=== PATIENT | female | born 1975 | race Caucasian/White ===

== ENCOUNTER 2023-11-06 06:12 | Emergency (ER) | payer BC ==
[~2023-11-06] VITALS: Ht 165.1 cm; Wt 104.3 kg
[2023-11-06 06:15] VITALS: O2SAT 98
[2023-11-06] MEDS ORDERED: ONDANSETRON HCL INJ 2MG/ML 2ML 2 MG/ML VIAL ONE (06:51)
[2023-11-06] MEDS ORDERED: DICYCLOMINE HCL 20 MG/2 ML VIAL IM ONE (06:51)
[2023-11-06] MEDS ORDERED: KETOROLAC TROMETHAMINE 30 MG/ML VIAL ONE (06:51)
[2023-11-06] MEDS ORDERED: SODIUM CHLORIDE 0.9% 1000ML 1,000 ML ONE (06:51)
[2023-11-06] MEDS: DICYCLOMINE HCL 20 MG/2 ML VIAL IM ONE (06:56)
[2023-11-06] MEDS: SODIUM CHLORIDE FLUSH 10 ML SYR IV PRN (06:56)
[2023-11-06] MEDS: SODIUM CHLORIDE 0.9% 1000ML 1,000 ML IV STA (06:56)
[2023-11-06] MEDS: ONDANSETRON HCL INJ 2MG/ML 2ML 2 MG/ML VIAL IV STA (06:56)
[2023-11-06] MEDS: KETOROLAC TROMETHAMINE 30 MG/ML VIAL IV STA (06:57)
[2023-11-06 07:00] LABS: BASOPHILS % 0.2 % (0.0-1.0); EOSINOPHILS # (AUTO) 0.4 (0.0-0.4); EOSINOPHILS % 2.5 % (0.0-6.0); HEMATOCRIT 38.8 % (34.2-44.1); HEMOGLOBIN 12.9 g/dL (12.0-16.0); LYMPHOCYTES # (AUTO) 1.8 (1.0-3.2); LYMPHOCYTES % 13.1 % (18.0-39.1); MEAN CORPUSCULAR HEMOGLOBIN 29.7 pg (28-32); MEAN CORPUSCULAR HGB CONC 33.2 g/dL (31-35); MEAN CORPUSCULAR VOLUME 89.2 fL (81-99); MONOCYTES # (AUTO) 0.9 (0.2-0.8); MONOCYTES % 6.2 % (4.4-11.3); NEUTROPHILS # (AUTO) 10.9 (2.1-6.9); NEUTROPHILS % 77.5 % (38.7-80.0); PLATELET COUNT 342 x10e3/uL (140-360); RED BLOOD COUNT 4.35 x10e6/uL (3.6-5.1); RED CELL DISTRIBUTION WIDTH 14.1 % (11.7-14.4); WHITE BLOOD COUNT 14.03 x10e3/uL (4.8-10.8)
[2023-11-06 07:19] LABS: BILIRUBIN,URINE NEGATIVE (NEGATIVE); CLARITY,URINE SL CLOUDY (CLEAR); COLOR,URINE YELLOW (YELLOW); GLUCOSE, URINE NEGATIVE (NEGATIVE); KETONES,URINE NEGATIVE (NEGATIVE); LEUKOCYTE ESTERASE ,URINE NEGATIVE (NEGATIVE); NITRITE,URINE NEGATIVE (NEGATIVE); PH,URINE 6 (5 - 7); PROTEIN,URINE DIPSTICK NEGATIVE (NEGATIVE); URINE UROBILINOGEN 0.2 mg/dL (0.2 - 1)
[2023-11-06] MEDS ORDERED: DIATRIZOATE MEGL/DIATRIZOA SOD 30 ML BTL PO ONE (07:23)
[2023-11-06 07:33] LABS: ALBUMIN 3.6 g/dL (3.5-5.0); ANION GAP 12.8 mmol/L (8-16); BILIRUBIN,TOTAL 0.6 mg/dL (0.2-1.2); CALCIUM 9.6 mg/dL (8.4-10.2); CREATININE, SERUM 0.86 mg/dL (0.57-1.11); POTASSIUM 3.8 mmol/L (3.5-5.1); TOTAL PROTEIN 7.1 g/dL (6.5-8.1)
[2023-11-06 07:48] LABS: BACTERIA,URINE FEW /HPF; EPITHELIAL CELLS,URINE MODERATE /LPF; MUCUS,URINE RARE (RARE); RBC,URINE 0-5 /HPF (0-5)
[2023-11-06] MEDS ORDERED: IOPAMIDOL 370 MG/ML 100 ML INFUS..BTL INJ ONE (08:24)
[2023-11-06] MEDS ORDERED: ONDANSETRON ODT4 MG PO (09:07)
[2023-11-06] MEDS ORDERED: DICYCLOMINE HCL20 MG PO (09:07)
[2023-11-06] MEDS ORDERED: AMOX TR-K CLV1 EAC2 PO (09:07)
== END 2023-11-06 09:22 | disposition home or self-care (01) ==
LOC: ER 06:23
DX: R10.30 Lower abdominal pain, unspecified (principal); K57.32 Diverticulitis of large intestine without perforation or abscess without bleeding; R11.0 Nausea; F17.210 Nicotine dependence, cigarettes, uncomplicated
CPT/HCPCS: 36415; 74177; 80053; 81001; 84702; 85025; 93005; 99284; J0500; J1885; J2405; J7030; Q9963; Q9967

== ENCOUNTER 2024-07-15 19:07 | Emergency (ER) | payer BC ==
[~2024-07-15] VITALS: Ht 165.1 cm; Wt 104.3 kg
[~2024-07-15 19:07] MED LIST: AMOX TR-K CLV1 EAC2 PO; DICYCLOMINE HCL20 MG PO; ONDANSETRON ODT4 MG PO
[2024-07-15 20:35] VITALS: TEMP 98.1
[2024-07-15 21:08] VITALS: PULSE 65; RESP 19; O2SAT 99
[2024-07-15] MEDS ORDERED: ACETAMINOPHEN-1 EAC4 PO (21:09)
[2024-07-15] MEDS ORDERED: ONDANSETRON ODT4 MG PO (21:10)
[2024-07-15] MEDS: TRAMADOL HCL 50 MG TAB PO STA (22:08)
== END 2024-07-15 21:45 | disposition home or self-care (01) ==
LOC: ER 19:41
DX: S82.61XA Displaced fracture of lateral malleolus of right fibula, initial encounter for closed fracture (principal); W22.8XXA Striking against or struck by other objects, initial encounter; Y92.89 Other specified places as the place of occurrence of the external cause; K21.9 Gastro-esophageal reflux disease without esophagitis; F41.9 Anxiety disorder, unspecified
CPT/HCPCS: 99284

== ENCOUNTER 2024-12-13 18:49 | Emergency (ER) | payer BC, OTHER ==
[~2024-12-13] VITALS: Ht 165.1 cm; Wt 104.3 kg
[~2024-12-13 18:49] MED LIST changes: +ACETAMINOPHEN-1 EAC4 PO
[2024-12-13 19:26] LABS: BASOPHILS % 0.3 % (0.0-1.0); EOSINOPHILS # (AUTO) 0.2 (0.0-0.4); EOSINOPHILS % 1.6 % (0.0-6.0); HEMATOCRIT 36.7 % (34.2-44.1); HEMOGLOBIN 11.5 g/dL (12.0-16.0); LYMPHOCYTES # (AUTO) 1.8 (1.0-3.2); MEAN CORPUSCULAR HEMOGLOBIN 25.8 pg (28-32); MEAN CORPUSCULAR HGB CONC 31.3 g/dL (31-35); MEAN CORPUSCULAR VOLUME 82.3 fL (81-99); MONOCYTES # (AUTO) 0.6 (0.2-0.8); MONOCYTES % 5.2 % (4.4-11.3); NEUTROPHILS # (AUTO) 8.7 (2.1-6.9); NEUTROPHILS % 76.5 % (38.7-80.0); PLATELET COUNT 355 x10e3/uL (140-360); RED BLOOD COUNT 4.46 x10e6/uL (3.6-5.1); RED CELL DISTRIBUTION WIDTH 17.7 % (11.7-14.4); WHITE BLOOD COUNT 11.39 x10e3/uL (4.8-10.8)
[2024-12-13 19:29] LABS: BILIRUBIN,URINE NEGATIVE (NEGATIVE); CLARITY,URINE CLEAR (CLEAR); COLOR,URINE YELLOW (YELLOW); GLUCOSE, URINE NEGATIVE (NEGATIVE); KETONES,URINE NEGATIVE (NEGATIVE); LEUKOCYTE ESTERASE ,URINE NEGATIVE (NEGATIVE); NITRITE,URINE NEGATIVE (NEGATIVE); PH,URINE 6 (5 - 7); PROTEIN,URINE DIPSTICK NEGATIVE (NEGATIVE); RBC,URINE 0-5 /HPF (0-5); URINE UROBILINOGEN 0.2 mg/dL (0.2 - 1); WBC,URINE (MAN) 0-5 /HPF (0-5)
[2024-12-13 19:38] LABS: BACTERIA,URINE MODERATE /HPF; EPITHELIAL CELLS,URINE MANY /LPF; MUCUS,URINE MANY
[2024-12-13 19:50] LABS: ALBUMIN 3.9 g/dL (3.5-5.0); ALBUMIN/GLOBULIN RATIO 1.1 (0.8-2.0); ANION GAP 15.1 mmol/L (8-16); BILIRUBIN,TOTAL 0.3 mg/dL (0.2-1.2); CALCIUM 9.3 mg/dL (8.4-10.2); CREATININE, SERUM 1.03 mg/dL (0.57-1.11); POTASSIUM 4.1 mmol/L (3.5-5.1); TOTAL PROTEIN 7.3 g/dL (6.5-8.1)
[2024-12-13] MEDS: Morphine 4mg INJECTION 4 MG/ML INJ IV STA (19:54)
[2024-12-13] MEDS: ONDANSETRON HCL INJ 2MG/ML 2ML 2 MG/ML VIAL IV STA (19:55)
[2024-12-13] MEDS: SODIUM CHLORIDE 0.9% 1000ML 1,000 ML IV STA (19:55)
[2024-12-13] MEDS ORDERED: IOPAMIDOL 370 MG/ML 100 ML INFUS..BTL INJ ONE (20:07)
[2024-12-13 20:26] LABS: PREGNANCY TEST, URINE NEGATIVE (NEGATIVE)
[2024-12-13] MEDS: BELLADONNA ALK/PHENOBARBITAL 5 ML UDC PO ONE (21:24)
[2024-12-13] MEDS: MAGNESIUM/ALUMINUM/SIMETHICONE 30 ML UDC PO STA (21:24)
[2024-12-13] MEDS: LIDOCAINE VISC 2% SOLN 15 ML UDC PO STA (21:24)
[2024-12-13] MEDS ORDERED: AMOX TR-K CLV1 EAC2 PO (22:08)
[2024-12-13] MEDS ORDERED: KETOROLAC TROME10 MG PO (22:08)
[2024-12-13 22:30] VITALS: PULSE 78; RESP 16; TEMP 98.2; O2SAT 97
== END 2024-12-13 22:33 | disposition home or self-care (01) ==
LOC: ER 19:03
DX: R10.32 Left lower quadrant pain (principal); K57.32 Diverticulitis of large intestine without perforation or abscess without bleeding; R11.2 Nausea with vomiting, unspecified; K76.0 Fatty (change of) liver, not elsewhere classified; R16.0 Hepatomegaly, not elsewhere classified; K21.9 Gastro-esophageal reflux disease without esophagitis; F41.9 Anxiety disorder, unspecified; F32.A Depression, unspecified
CPT/HCPCS: 36415; 74177; 80053; 81001; 81025; 83690; 85025; 99284; J2270; J2405; J7030; Q9967

== ENCOUNTER 2024-12-20 14:45 | Inpatient (IN) | payer OTHER ==
[~2024-12-20] VITALS: Ht 165.1 cm; Wt 99.8 kg
[~2024-12-20 14:45] MED LIST changes: +KETOROLAC TROME10 MG PO
[2024-12-20] MEDS ORDERED: KETOROLAC TROMETHAMINE 30 MG/ML VIAL IV STA (14:58)
[2024-12-20 15:09] VITALS: RESP 18; TEMP 98
[2024-12-20 15:36] LABS: BASOPHILS % 0.3 % (0.0-1.0); EOSINOPHILS # (AUTO) 0.2 (0.0-0.4); EOSINOPHILS % 1.9 % (0.0-6.0); HEMATOCRIT 37.8 % (34.2-44.1); LYMPHOCYTES # (AUTO) 1.5 (1.0-3.2); LYMPHOCYTES % 15.5 % (18.0-39.1); MEAN CORPUSCULAR HEMOGLOBIN 25.9 pg (28-32); MEAN CORPUSCULAR HGB CONC 31.7 g/dL (31-35); MEAN CORPUSCULAR VOLUME 81.6 fL (81-99); MONOCYTES # (AUTO) 0.5 (0.2-0.8); MONOCYTES % 5.2 % (4.4-11.3); NEUTROPHILS # (AUTO) 7.4 (2.1-6.9); NEUTROPHILS % 76.9 % (38.7-80.0); PLATELET COUNT 349 x10e3/uL (140-360); RED BLOOD COUNT 4.63 x10e6/uL (3.6-5.1); RED CELL DISTRIBUTION WIDTH 17.2 % (11.7-14.4); WHITE BLOOD COUNT 9.56 x10e3/uL (4.8-10.8)
[2024-12-20] MEDS: ONDANSETRON HCL INJ 2MG/ML 2ML 2 MG/ML VIAL IV STA (15:39)
[2024-12-20] MEDS: SODIUM CHLORIDE 0.9% 1000ML 1,000 ML IV ONE (15:39)
[2024-12-20] MEDS: FENTANYL CITRATE/PF 100MCG/2 ML INJ IV ONE (15:41)
[2024-12-20 15:45] LABS: BILIRUBIN,URINE NEGATIVE (NEGATIVE); COLOR,URINE YELLOW (YELLOW); GLUCOSE, URINE NEGATIVE (NEGATIVE); KETONES,URINE NEGATIVE (NEGATIVE); LEUKOCYTE ESTERASE ,URINE TRACE (NEGATIVE); NITRITE,URINE NEGATIVE (NEGATIVE); PH,URINE 6.5 (5 - 7); PROTEIN,URINE DIPSTICK NEGATIVE (NEGATIVE); URINE UROBILINOGEN 0.2 mg/dL (0.2 - 1)
[2024-12-20 15:46] LABS: CLARITY,URINE SL CLOUDY (CLEAR)
[2024-12-20 15:53] LABS: ALBUMIN 3.9 g/dL (3.5-5.0); ALBUMIN/GLOBULIN RATIO 1.1 (0.8-2.0); ANION GAP 17.2 mmol/L (8-16); BILIRUBIN,TOTAL 0.2 mg/dL (0.2-1.2); CALCIUM 9.2 mg/dL (8.4-10.2); CREATININE, SERUM 1.02 mg/dL (0.57-1.11); POTASSIUM 4.2 mmol/L (3.5-5.1); TOTAL PROTEIN 7.5 g/dL (6.5-8.1)
[2024-12-20] MEDS ORDERED: IOPAMIDOL 370 MG/ML 100 ML INFUS..BTL INJ ONE (16:03)
[2024-12-20 16:05] LABS: MUCUS,URINE MODERATE; RBC,URINE 0-5 /HPF (0-5); TRANSITIONAL EPI CELLS,URINE FEW; YEAST,URINE FEW
[2024-12-20 16:06] LABS: BACTERIA,URINE MODERATE /HPF; EPITHELIAL CELLS,URINE MANY /LPF
[2024-12-20 16:30] VITALS: PULSE 70
[2024-12-20] MEDS: SODIUM CHLORIDE 0.9% 1000ML 1,000 ML IV SCH (17:42)
[2024-12-20 20:00] VITALS: BP 117/72; PULSE 71; RESP 18; TEMP 98.1; O2SAT 100
[2024-12-20] MEDS: FENTANYL CITRATE/PF 100MCG/2 ML INJ IV PRN (21:54)
[2024-12-20 21:56] VITALS: BP 117/72; PULSE 71; TEMP 98; O2SAT 98
[2024-12-20 22:11] VITALS: BP 117/72; PULSE 71; TEMP 98; O2SAT 98
[2024-12-20] MEDS ORDERED: BUPROPION XL150 MG PO (22:20)
[2024-12-20] MEDS ORDERED: BUSPIRONE HCL10 MG PO (22:21)
[2024-12-20] MEDS ORDERED: METFORMIN HCL850 MG PO (22:23)
[2024-12-20] MEDS ORDERED: FERROUS SULFAT325 MG PO (22:23)
[2024-12-20] MEDS: ONDANSETRON HCL INJ 2MG/ML 2ML 2 MG/ML VIAL IV PRN (22:32)
[2024-12-21] VITALS (7 sets, daily range): BP systolic 99–123; BP diastolic 59–82; PULSE 63–81; RESP 17–18; TEMP 97.7–98.1; O2SAT 97–100
[2024-12-21] MEDS ORDERED: HYDRALAZINE HCL 20 MG/ML VIAL IV PRN (04:45)
[2024-12-21 05:30] LABS: BASOPHILS % 0.4 % (0.0-1.0); EOSINOPHILS # (AUTO) 0.2 (0.0-0.4); EOSINOPHILS % 2.1 % (0.0-6.0); HEMATOCRIT 33.4 % (34.2-44.1); HEMOGLOBIN 10.5 g/dL (12.0-16.0); LYMPHOCYTES # (AUTO) 1.5 (1.0-3.2); LYMPHOCYTES % 18.7 % (18.0-39.1); MEAN CORPUSCULAR HEMOGLOBIN 26.4 pg (28-32); MEAN CORPUSCULAR HGB CONC 31.4 g/dL (31-35); MEAN CORPUSCULAR VOLUME 83.9 fL (81-99); MONOCYTES # (AUTO) 0.5 (0.2-0.8); MONOCYTES % 5.7 % (4.4-11.3); NEUTROPHILS # (AUTO) 5.9 (2.1-6.9); PLATELET COUNT 259 x10e3/uL (140-360); RED BLOOD COUNT 3.98 x10e6/uL (3.6-5.1); RED CELL DISTRIBUTION WIDTH 17.2 % (11.7-14.4); WHITE BLOOD COUNT 8.06 x10e3/uL (4.8-10.8)
[2024-12-21 05:51] LABS: ALBUMIN 3.3 g/dL (3.5-5.0); ALBUMIN/GLOBULIN RATIO 1.2 (0.8-2.0); ANION GAP 12.9 mmol/L (8-16); BILIRUBIN,TOTAL 0.2 mg/dL (0.2-1.2); CREATININE, SERUM 0.87 mg/dL (0.57-1.11); POTASSIUM 3.9 mmol/L (3.5-5.1); TOTAL PROTEIN 6.1 g/dL (6.5-8.1)
[2024-12-21] MEDS: HYDROMORPHONE 1MG/1ML INJ IV PRN (06:24)
[2024-12-21] MEDS: BUSPIRONE HCL 10 MG TABLET PO SCH (08:52)
[2024-12-21] MEDS: BUPROPION HCL 150 MG TABCR PO SCH (08:53)
[2024-12-21] MEDS: MAGNESIUM/ALUMINUM/SIMETHICONE 30 ML UDC PO PRN (10:56)
[2024-12-21] MEDS: KETOROLAC TROMETHAMINE 30 MG/ML VIAL IV PRN (10:57)
[2024-12-21] MEDS: DONNATAL/LIDOCAINE/MAALOX 30 ML SUSP PO PRN (16:02)
[2024-12-22] VITALS: BP 104/79; PULSE 71; RESP 18; TEMP 98; O2SAT 100
[2024-12-22 04:45] VITALS: BP 104/79; PULSE 71; RESP 18; TEMP 98; O2SAT 100
[2024-12-22 04:48] VITALS: BP 102/62; PULSE 72; RESP 18; TEMP 97.7; O2SAT 100
[2024-12-22 07:58] VITALS: BP 120/76; PULSE 68; RESP 19; TEMP 97.4; O2SAT 99
[2024-12-22 09:36] VITALS: BP 120/76; PULSE 68; RESP 19; TEMP 97.4; O2SAT 99
[2024-12-22 11:27] VITALS: BP 119/79; PULSE 75; RESP 19; TEMP 98.1; O2SAT 97
== END 2024-12-22 13:33 | disposition home or self-care (01) | DRG 392 ==
LOC: ER 14:52 → ERHOLD 16:55 → MED/SURG2 18:15
PROVIDERS: ADMIT Internal Medicine; ATTEND Internal Medicine
DX: K57.32 Diverticulitis of large intestine without perforation or abscess without bleeding (principal); N39.0 Urinary tract infection, site not specified; I10 Essential (primary) hypertension; E11.9 Type 2 diabetes mellitus without complications; Z79.84 Long term (current) use of oral hypoglycemic drugs; E66.01 Morbid (severe) obesity due to excess calories; Z68.36 Body mass index [BMI] 36.0-36.9, adult; F41.9 Anxiety disorder, unspecified; Z79.899 Other long term (current) drug therapy
CPT/HCPCS: 36415; 74177; 80053; 81001; 83690; 84702; 85025; 99284; J1171; J1885; J2405; J2543; J7030; Q9967